=== PATIENT | male | born 1960 | race Caucasian/White ===

== ENCOUNTER → 2016-08-15 | Outpatient (CLI) | payer BC ==
--- NOTE | 2016-08-15 12:01 | XR ---
Left foot HISTORY: Edema, pain 2 views of the left foot Flexion deformity suggested at the second digit with possible associated soft tissue swelling, correl ate. Bone mineralization is maintained, alignment is within normal limits. Degenerative change presen t at the first metatarsophalangeal joint. There is a plantar calcaneal spur. Degenerative change pres ent at the intertarsal joints. IMPRESSION: Osteoarthritic changes. Additional findings above, correlate for flexion deformity second digit.
== END | disposition home or self-care (01) ==
LOC: RADXRMAIN 10:59
PROVIDERS: ATTEND Dermatology
DX: M19.072 Primary osteoarthritis, left ankle and foot (principal); L71.8 Other rosacea

== ENCOUNTER 2018-07-21 05:33 | Inpatient (IN) | payer BC ==
[2018-07-21] MEDS ORDERED: SODIUM CHLORIDE 0.9% 1,000 ML IV STA (05:56)
[2018-07-21] MEDS ORDERED: DILTIAZEM DRIP BOLUS FROM BAG 1 MG SOLN IV ONE (05:58)
--- NOTE | 2018-07-21 06:11 | ED ---
GI Bleed HPI - General Chief complaint: GI Bleed Stated complaint: abd pain Time Seen by Provider: 07/21/18 05:43 Source: patient Mode of arrival: ambulatory Limitations: no limitations - History of Present Illness Initial comments: Stephane is a pleasant 58yo male with PMH of bleeding diverticula who presents to the ER today for evaluation of GI bleeding. She states she had a bowel movement this morning upon wiping he noticed that there was bright red blood this is similar to previous episodes of diverticular bleeding. Patient reports he began to feel very anxious about the bleeding but decided to come to the ER for further evaluation. Upon arrival in the ER patient was found to be in atrial fibrillation with RVR with rates ranging from the 110s to the 170s. Patient states that he has no history of A. fib he's never seen a optomechanical engineer he has no known cardiac history he is not on any anticoagulant antiplatelet medications. - Related Data Home Medications Medication Instructions Recorded Confirmed ALPRAZolam [Xanax] 0.25 mg PO HS PRN 07/21/18 07/21/18 Levothyroxine Sodium [Synthroid] 25 mcg PO DAILY 07/21/18 07/21/18 Allergies Allergy/AdvReac Type Severity Reaction Status Date / Time No Known Allergies Allergy Verified 07/21/18 07:16 Review of Systems ROS Statement: Those systems with pertinent positive or pertinent negative responses have been documented in the HPI. ROS Other: All systems not noted in ROS Statement are negative. Past Medical History Past Medical History: Thyroid Disorder Additional Past Medical History / Comment(s): diverticulosis History of Any Multi-Drug Resistant Organisms: None Reported Past Surgical History: Tonsillectomy Past Psychological History: No Psychological Hx Reported Smoking Status: Former smoker Past Alcohol Use History: Rare Past Drug Use History: None Reported General Exam - General Exam Comments Initial Comments: Physical Exam GENERAL: Patient is well-developed and well-nourished. Patient is nontoxic and well-hydrated and is in no distress. HENT: Normocephalic, Atraumatic. EYES: PERRL, EOMI PULMONARY: Unlabored respirations. No audible rales rhonchi or wheezing was noted. CARDIOVASCULAR: Irregularly irregular Warm and well perfused extremities ABDOMEN: Soft and nontender with normal bowel sounds. SKIN: Skin is clear with no lesions or rashes and otherwise unremarkable. : Normal external genitalia normal rectal tone, no external hemorrhoids noted Bright red blood per rectum NEUROLOGIC: Patient is alert and oriented x3. Moving all extremities spontaneously MUSCULOSKELETAL: Normal extremities with adequate strength and full range of motion. No lower extremity swelling or edema. No calf tenderness. PSYCHIATRIC: Normal psychiatric evaluation. Limitations: no limitations Course Vital Signs 07/21/18 07/21/18 07/21/18 05:38 06:17 07:16 Temperature 97.9 F Pulse Rate 107 H 134 H 125 H Respiratory 20 20 18 Rate Blood Pressure 150/93 113/97 110/93 O2 Sat by Pulse 99 97 95 Oximetry 07/21/18 07:50 Temperature Pulse Rate 106 H Respiratory 16 Rate Blood Pressure O2 Sat by Pulse 97 Oximetry Medical Decision Making - Medical Decision Making The patient was seen and evaluated, history is obtained from the patient Patient is noted to have new onset atrial fibrillation with RVR, patient does admit to feeling anxious but denies any chest pain palpitations or shortness of breath Asians exam also reveals bright red blood per rectum Labs and imaging were ordered Cardizem ordered for her A. fib with RVR however given that the patient has active rectal bleeding I will hold the heparin at this time. Labs unremarkable, hemoglobin is stable, electrolytes are within normal limits TSH is within normal limits, Troponin is not elevated X-ray concerning for coronary vascular congestion this is likely acutely related to the patient's A. fib with RVR. Patient's heart rate improving with Cardizem patient maintained hemodynamically stable. An echo was ordered for further evaluation of cardiac function. Patient care was discussed with Dr. Louis admitting physician who agrees with plan for admission with consults cardiology and surgery Dr. Verdugo the patient is seen in the past for GI bleeding. Patient care was discussed with Dr. Roca who will evaluate the patient as well as Dr. Mcgraw of cardiology group who is aware and will evaluate the patient. - Lab Data Result diagrams: 07/21/18 05:55 07/21/18 05:55 Lab Results 07/21/18 07/21/18 07/21/18 Range/Units 05:55 05:55 05:55 WBC 5.8 (3.8-10.6) k/uL RBC 5.41 (4.30-5.90) m/uL Hgb 15.9 (13.0-17.5) gm/dL Hct 51.7 (39.0-53.0) % MCV 95.7 (80.0-100.0) fL MCH 29.3 (25.0-35.0) pg MCHC 30.7 L (31.0-37.0) g/dL RDW 14.4 (11.5-15.5) % Plt Count 176 (150-450) k/uL Neutrophils % 59 % Lymphocytes % 29 % Monocytes % 7 % Eosinophils % 3 % Basophils % 1 % Neutrophils # 3.4 (1.3-7.7) k/uL Lymphocytes # 1.7 (1.0-4.8) k/uL Monocytes # 0.4 (0-1.0) k/uL Eosinophils # 0.2 (0-0.7) k/uL Basophils # 0.1 (0-0.2) k/uL PT (9.0-12.0) sec INR (<1.2) APTT (22.0-30.0) sec Sodium 142 (137-145) mmol/L Potassium 4.5 (3.5-5.1) mmol/L Chloride 111 H (98-107) mmol/L Carbon Dioxide 19 L (22-30) mmol/L Anion Gap 12 mmol/L BUN 9 (9-20) mg/dL Creatinine 0.67 (0.66-1.25) mg/dL Est GFR (CKD-EPI)AfAm >90 (>60 ml/min/1.73 sqM) Est GFR (CKD-EPI)NonAf >90 (>60 ml/min/1.73 sqM) Glucose 84 (74-99) mg/dL Calcium 9.6 (8.4-10.2) mg/dL Magnesium 1.8 (1.6-2.3) mg/dL Total Bilirubin 0.5 (0.2-1.3) mg/dL AST 37 (17-59) U/L ALT 28 (21-72) U/L Alkaline Phosphatase 48 (38-126) U/L Troponin I (0.000-0.034) ng/mL NT-Pro-B Natriuret Pep 1600 pg/mL Total Protein 7.2 (6.3-8.2) g/dL Albumin 4.3 (3.5-5.0) g/dL Stool Occult Blood (Negative) 07/21/18 07/21/18 07/21/18 Range/Units 05:55 05:55 06:14 WBC (3.8-10.6) k/uL RBC (4.30-5.90) m/uL Hgb (13.0-17.5) gm/dL Hct (39.0-53.0) % MCV (80.0-100.0) fL MCH (25.0-35.0) pg MCHC (31.0-37.0) g/dL RDW (11.5-15.5) % Plt Count (150-450) k/uL Neutrophils % % Lymphocytes % % Monocytes % % Eosinophils % % Basophils % % Neutrophils # (1.3-7.7) k/uL Lymphocytes # (1.0-4.8) k/uL Monocytes # (0-1.0) k/uL Eosinophils # (0-0.7) k/uL Basophils # (0-0.2) k/uL PT 12.7 H (9.0-12.0) sec INR 1.2 H (<1.2) APTT 26.1 (22.0-30.0) sec Sodium (137-145) mmol/L Potassium (3.5-5.1) mmol/L Chloride (98-107) mmol/L Carbon Dioxide (22-30) mmol/L Anion Gap mmol/L BUN (9-20) mg/dL Creatinine (0.66-1.25) mg/dL Est GFR (CKD-EPI)AfAm (>60 ml/min/1.73 sqM) Est GFR (CKD-EPI)NonAf (>60 ml/min/1.73 sqM) Glucose (74-99) mg/dL Calcium (8.4-10.2) mg/dL Magnesium (1.6-2.3) mg/dL Total Bilirubin (0.2-1.3) mg/dL AST (17-59) U/L ALT (21-72) U/L Alkaline Phosphatase (38-126) U/L Troponin I <0.012 (0.000-0.034) ng/mL NT-Pro-B Natriuret Pep pg/mL Total Protein (6.3-8.2) g/dL Albumin (3.5-5.0) g/dL Stool Occult Blood Positive (Negative) - EKG Data -: EKG Interpreted by Me EKG Comments: EKG was ordered for evaluation of tachycardia next line EKG was obtained at 5:55 AM, rate is 147 a narrow complex irregularly irregular tachycardia consistent with atrial fibrillation with rapid ventricular response, QRS 88, QT 314, QTC [address] elevations or depressions no evidence acute ischemia or infarction. Critical Care Time Critical Care Time: Yes Total Critical Care Time: 45 Critical Care Time: Critical Care Time Critical care time was exclusive of separately billable procedures and treating other patients and teaching time. Critical care was necessary to treat or prevent imminent or life-threatening deterioration. Given the critical condition in which the patient arrived, the patient was immediately assessed by myself and the nurse, and cardiac monitoring initiated due to the potential for rapid decompensation of the patient's clinical condition. During the course of the patients stay, I spent a considerable amount of time at the bedside performing serial re-evaluations of the patient's hemodynamic and clinical status because of the recognized potential threat to life or limb in this condition. I then had a chance to review not only all of the available current laboratory and radiographic studies obtained today, but I also reviewed old records available to me at the time. Additionally, any ancillary information available including bulk tank car unloader records were reviewed. Sequential vital signs were obtained. Disposition Clinical Impression: BRBPR (bright red blood per rectum), Atrial fibrillation with RVR, Heart failure Disposition: ADMITTED IP TO THIS HOSP Condition: Serious Is patient prescribed a controlled substance at d/c from ED?: No Referrals: Wang May DO [Primary Care Provider] - 1-2 days
[2018-07-21] MEDS: DILTIAZEM 125 MG in SODIUM CHLORIDE 0.9% 100 ML IV SCH (06:14)
[2018-07-21 06:18] LABS: Basophils # (A) 0.1 k/uL (0-0.2); Basophils % (A) 1 %; Eosinophils # (A) 0.2 k/uL (0-0.7); Eosinophils % (A) 3 %; HCT 51.7 % (39.0-53.0); HGB 15.9 gm/dL (13.0-17.5); Lymphocytes # (A) 1.7 k/uL (1.0-4.8); Lymphocytes % (A) 29 %; MCH 29.3 pg (25.0-35.0); MCHC 30.7 g/dL (31.0-37.0); MCV 95.7 fL (80.0-100.0); Mean Platelet Volume 8.3; Monocytes # (A) 0.4 k/uL (0-1.0); Monocytes % (A) 7 %; Neutrophils # (A) 3.4 k/uL (1.3-7.7); Neutrophils % (A) 59 %; Platelet Count 176 k/uL (150-450); RBC 5.41 m/uL (4.30-5.90); RDW 14.4 % (11.5-15.5); WBC 5.8 k/uL (3.8-10.6)
[2018-07-21 06:27] LABS: ALT 28 U/L (21-72); AST 37 U/L (17-59); Albumin 4.3 g/dL (3.5-5.0); Alkaline Phosphatase 48 U/L (38-126); Anion Gap 12 mmol/L; Blood Urea Nitrogen 9 mg/dL (9-20); Calcium 9.6 mg/dL (8.4-10.2); Carbon Dioxide 19 mmol/L (22-30); Chloride 111 mmol/L (98-107); Glucose 84 mg/dL (74-99); Magnesium 1.8 mg/dL (1.6-2.3); Potassium 4.5 mmol/L (3.5-5.1); Sodium 142 mmol/L (137-145); Total Bilirubin 0.5 mg/dL (0.2-1.3); Total Protein 7.2 g/dL (6.3-8.2)
[2018-07-21 06:38] LABS: INR 1.2 (<1.2); Partial Thromboplastin Time 26.1 sec (22.0-30.0); Prothrombin Time 12.7 sec (9.0-12.0)
--- NOTE | 2018-07-21 06:52 | XR ---
EXAM: XR Chest, 2 Views CLINICAL HISTORY: ITS.REASON XR Reason: Chest Pain TECHNIQUE: Frontal and lateral views of the chest. COMPARISON: 06/14/15 FINDINGS/IMPRESSION: Vascular congestion. Pulmonary hyperexpansion. Suspected bronchial wall thickening. No consolidation. Borderline enlargement of cardiac silhouette suggested more on the frontal than the lateral view. Configuration of cardiac silhouette suggests possibility of pericardial effusion. Alternatively, some of the opacity at the lateral portions of the cardiac silhouette may represent summation with thickened airways. Consider echocardiography or other follow-up, as indicated.
[2018-07-21] MEDS ORDERED: NALOXONE 0.4 MG/ML 1 ML VIAL IV PRN (07:22)
[2018-07-21 10:10] LABS: Glucose,Whole Blood 84 mg/dL (75-99)
[2018-07-21] MEDS ORDERED: METOPROLOL TARTRATE 25 MG TAB PO SCH (12:00)
--- NOTE | 2018-07-21 12:50 | ECHOF ---
Referral Reason:new afib rvr, concern for pericardial efusion MEASUREMENTS -------- HEIGHT: 182.9 cm WEIGHT: 99.8 kg BP: 110/93 RVIDd: 3.1 cm (< 3.3) IVSd: 1.2 cm (0.6 - 1.1) LVIDd: 5.2 cm (3.9 - 5.3) LVPWd: 1.3 cm (0.6 - 1.1) IVSs: 1.5 cm LVIDs: 4.7 cm LVPWs: 1.3 cm LAESV Index (A-L): 41.60 ml/m Ao Diam: 3.8 cm (2.0 - 3.7) AV Cusp: 2.1 cm (1.5 - 2.6) LA Diam: 3.0 cm (2.7 - 3.8) RAP: 20.00 mmHg RVSP: 45.68 mmHg FINDINGS -------- Atrial fibrillation. This was a technically good study. The left ventricular size is normal. There is mild concentric left ventricular hypertrophy. There is severe global hypokinesis of LV . Overall left ventricular systolic function is severely impair ed with, an EF < 20%. The right ventricle is normal in size. LA is severely dilated >40 ml/m2 RA appears enlarged. Interatrial and interventricular septum intact. The aortic valve is trileaflet and appears structurally normal. The mitral valve is normal. Mild mitral regurgitation is present , predominately an anteriorly dire cted jet. [id number] tricuspid regurgitation present. There is mild pulmonary hypertension. The right ventricular systolic pressure, as measured by Doppler, is 45.68mmHg. There is no pulmonic regurgitation present. The aortic root size is normal. The inferior vena cava is dilated with no significant inspiratory collapse which is consistent estima catherine right atrial pressure of >20 mmHg. Echo free space indicative of a pericardial fat pad. CONCLUSIONS -------- 1. Atrial fibrillation. 2. This was a technically good study. 3. The left ventricular size is normal. 4. There is mild concentric left ventricular hypertrophy. 5. There is severe global hypokinesis of LV . 6. Overall left ventricular systolic function is severely impaired with, an EF < 20%. 7. The right ventricle is normal in size. 8. LA is severely dilated >40 ml/m2 9. RA appears enlarged. 10. Interatrial and interventricular septum intact. 11. The aortic valve is trileaflet and appears structurally normal. 12. The mitral valve is normal. 13. Mild mitral regurgitation is present. 14. , predominately an anteriorly directed jet. 15. Zkwm-[id number] tricuspid regurgitation present. 16. There is mild pulmonary hypertension. 17. The right ventricular systolic pressure, as measured by Doppler, is 45.68mmHg. 18. There is no pulmonic regurgitation present. 19. The aortic root size is normal. 20. The inferior vena cava is dilated with no significant inspiratory collapse which is consistent es timated right atrial pressure of >20 mmHg. 21. Echo free space indicative of a pericardial fat pad. MANUFACTURED BUILDINGS REPAIRER: Johana Freire RDCS
--- NOTE | 2018-07-21 13:22 | P.HPIM ---
History of Present Illness H&P Date: 07/21/18 Chief Complaint: A. fib with RVR, acute GI bleed, cardiomyopathy, hypertension, hypothyroidi 58-year-old male one of Dr. May patient with past medical history of hypothyroidism and history of diverticulitis with recurrent bleed had colonoscopy in 2013 and [place] [address] Verdugo patient is known to have recurrent GI bleed back and forth has been treated for it several times. Apparently patient had an acute GI bleed with bloody stool when he wiped himself a significant amount of blood ended up coming to the emergency department at [facility] early this morning at the time was exam found to have very rapid pulse with heart rate running 170 beats per minutes found to be in A. fib with RVR his blood count was not low patient was not in any active bleed he was started on Cardizem drip consult cardiology and admit patient to the hospital. Also consult Dr. boss for possible colonoscopy and prepare for anticoagulation if needed. Echocardiogram at the time was seen was pending came back positive for severe cardiopathy with ejection fraction less than 20% tile would not be clear evidence why Review of Systems CONSTITUTIONAL: Well-developed no acute respiratory distress. EYES: No icterus sclerae, no conjunctivitis. EARS, NOSE, MOUTH, THROAT, and FACE: No sore throat, lymphadenopathy, carotid bruits or deformity. RESPIRATORY: Positive shortness of breath and wheezes. CARDIOVASCULAR: Positive palpitation with PND and orthopnea. GASTROINTESTINAL: No abdominal pain positive bloody bowel movement with no nausea vomiting. GENITOURINARY: Negative for Hematuria or UTI, no kidney stones. INTEGUMENT/BREAST: Negative for any muscular injury with mild osteoarthritis.. HEMATOLOGIC/LYMPHATIC: Negative for bleed or purpura. MUSCULOSKELTAL: Negative for Myalgia or arthralgia. NEURLOGICAL: No LOC, Sz or syncope, blurred vision dizziness or abnormality.. BEHAVIORAL/PSYCH: Negative. ENDOCRINE: Negative. Past Medical History Past Medical History: Skin Disorder, Thyroid Disorder Additional Past Medical History / Comment(s): 2006 Lower GI bleed d/t bleeding diverticuli/profound anemia with transfusions, diverticulosis, hypothyroid, dermatitis face/chest/back. History of Any Multi-Drug Resistant Organisms: None Reported Past Surgical History: Tonsillectomy Additional Past Surgical History / Comment(s): 2007 EGD/colonoscopy Past Anesthesia/Blood Transfusion Reactions: No Reported Reaction, Motion Sickness Smoking Status: Former smoker - Past Family History Father Family Medical History: No Reported History Additional Family Medical History / Comment(s): Father is healthy and is 82 yrs old. Mother Family Medical History: Cancer Additional Family Medical History / Comment(s): Mother of brain cancer. Medications and Allergies Home Medications Medication Instructions Recorded Confirmed Type ALPRAZolam [Xanax] 0.25 mg PO HS PRN 07/21/18 07/21/18 History Levothyroxine Sodium [Synthroid] 25 mcg PO DAILY 07/21/18 07/21/18 History Allergies Allergy/AdvReac Type Severity Reaction Status Date / Time No Known Allergies Allergy Verified 07/21/18 07:16 Physical Exam Vitals: Vital Signs Temp Pulse Resp BP Pulse Ox 07/21/18 10:30 121 H 18 141/112 92 L 07/21/18 10:20 97.7 F 130 H 23 141/112 98 07/21/18 10:10 138 H 30 H 94 L 07/21/18 10:03 137 H 10 L 95 07/21/18 09:50 122/92 07/21/18 09:40 124 H 21 122/92 96 07/21/18 09:30 138 H 22 134/105 94 L 07/21/18 09:00 125 H 18 128/86 94 L 07/21/18 08:50 124 H 19 95 07/21/18 08:40 120 H 20 128/86 96 07/21/18 08:20 122 H 18 128/86 96 07/21/18 07:50 106 H 16 97 07/21/18 07:16 125 H 18 110/93 95 07/21/18 06:17 134 H 20 113/97 97 07/21/18 05:38 97.9 F 107 H 20 150/93 99 Intake and Output 07/20/18 07/21/18 07/21/18 22:59 06:59 14:59 Other: Weight 99.79 kg General Appearance: Alert, cooperative, no distress, appears stated age. Neck HEENT: Supple, no lymphadenopathy, no thyroid enlargement, no carotid bruits. Lungs: Clear to auscultation without crackles or wheezes no rhonchi, no deformity. Chest Wall: Chest wall normal expansion with deep inspiration no tenderness and no deformity was found on exam, no costochondral pain or discomfort. Heart: Irregular rate and rhythm, S1, S2 positive S3 , no murmur, rub or gallop. Back: Symmetric, no curvature, ROM normal, no CVA tenderness. Abdomen: Soft, non-tender, bowel sounds active all four quadrants, no masses, no organomegaly. Extremities: Extremities normal, atraumatic, no cyanosis or edema. Pulses: 2+ and symmetric. Skin: Skin color, texture, tugor normal, no rashes or lesions. Neurologic: Alert oriented x3 cranial nerves II through XII intact, no motor deficit, no abnormal balance or gait. Results CBC & Chem 7: 07/21/18 05:55 07/21/18 05:55 Labs: Abnormal Lab Results - Last 24 Hours (Table) 07/21/18 07/21/18 07/21/18 Range/Units 05:55 05:55 05:55 MCHC 30.7 L (31.0-37.0) g/dL PT 12.7 H (9.0-12.0) sec INR 1.2 H (<1.2) Chloride 111 H (98-107) mmol/L Carbon Dioxide 19 L (22-30) mmol/L TSH (0.465-4.680) mIU/L 07/21/18 Range/Units 05:55 MCHC (31.0-37.0) g/dL PT (9.0-12.0) sec INR (<1.2) Chloride (98-107) mmol/L Carbon Dioxide (22-30) mmol/L TSH 6.860 H (0.465-4.680) mIU/L Thrombosis Risk Factor Assmnt - DVT/VTE Prophylaxis DVT/VTE Prophylaxis: Mechanical Prophylaxis ordered - Choose All That Apply Any of the Below Risk Factors Present?: Yes Each Factor Represents 1 point: Age 41-60 years, Heart failure (<1month), Obesity (BMI >25) Other Risk Factors: No Other congenital or acquired thrombophilia - If yes, enter type in comment: No Thrombosis Risk Factor Assessment Total Risk Factor Score: 3 Thrombosis Risk Factor Assessment Level: Moderate Risk Assessment and Plan Plan: 1 A. fib with RVR: Patient will be admitted to the hospital [facility] continue to monitor patient closely we'll consult cardiology no anticoagulation at this point until his GI bleed is a clear hour after colonoscopy. If no response to Cardizem patient might require amiodarone or even cardioversion. Ex 2 acute GI bleed: Most likely lower in could be diverticulitis versus ischemic colitis Dr. Verdugo was consulted patient be seen and plan for colonoscopy before starting an anticoagulation. 3 cardiopathy: Not a clear etiology no history of ischemia in the past patient be seen cardiology CK with troponin and if can heart catheter would be beneficial. 4 history of diverticulitis with recurrent episode: No need for any antibiotics currently specially with no active or acute abdominal pain. 5 hypothyroidism: Has been on levothyroxine continue medication. 6 mild anxiety and panic attack: Continue patient on alprazolam. 7 GI prophylaxis: Patient will be on pantoprazole. CODE STATUS: Full code. Admit patient to inpatient status for more than 2 nights.
[2018-07-21] MEDS ORDERED: FUROSEMIDE 10 MG/ML 2 ML VIAL IV STA (13:24)
[2018-07-21] MEDS: PANTOPRAZOLE 40 MG/10 ML VIAL IVP SCH (14:03)
[2018-07-21] MEDS: LISINOPRIL 2.5 MG TAB PO SCH (14:03)
[2018-07-21] MEDS: SPIRONOLACTONE 25 MG TAB PO SCH (14:03)
[2018-07-21] MEDS: METOPROLOL TARTRATE 50 MG TAB PO SCH (14:04)
[2018-07-21 14:20] LABS: T4, Free (Free Thyroxine) 1.22 ng/dL (0.78-2.19)
--- NOTE | 2018-07-21 15:41 | P.GSCN ---
History of Present Illness Consult date: 07/21/18 Reason for Consult: Rectal bleeding History of present illness: 58-year-old male comes in the ER with complaints of bright red blood per rectum. The patient has had 2 previous episodes. Once when he was in [place]. He was kept in the hospital that time for about a day or so. The time prior to that was 10-15 years ago and he was kept here at [facility] for approximately 6 days. Colonoscopy revealed diverticulosis per the patient. No history of known neoplasia or polypoid disease. This time the patient had blood primarily with wiping. He had no large bloody stools at this admission. In the ER the patient was found to be significantly tachycardic. Echo shows a very low ejection fraction. Cardiology consult pending. Denies abdominal pain. Hemoglobin stable. Review of Systems The patient denies any acute changes in vision or hearing, no dysphagia or odynophagia, no chest pain or shortness of breath, no dysuria or hematuria, no headache, no runny nose, no melena, no unexplained weight loss Past Medical History Past Medical History: Skin Disorder, Thyroid Disorder Additional Past Medical History / Comment(s): 2006 Lower GI bleed d/t bleeding diverticuli/profound anemia with transfusions, diverticulosis, hypothyroid, dermatitis face/chest/back. History of Any Multi-Drug Resistant Organisms: None Reported Past Surgical History: Tonsillectomy Additional Past Surgical History / Comment(s): 2006 EGD/colonoscopy Past Anesthesia/Blood Transfusion Reactions: No Reported Reaction, Motion Sickness Smoking Status: Former smoker - Past Family History Father Family Medical History: No Reported History Additional Family Medical History / Comment(s): Father is healthy and is 82 yrs old. Mother Family Medical History: Cancer Additional Family Medical History / Comment(s): Mother of brain cancer. Medications and Allergies Home Medications Medication Instructions Recorded Confirmed Type ALPRAZolam [Xanax] 0.25 mg PO HS PRN 07/21/18 07/21/18 History Levothyroxine Sodium [Synthroid] 25 mcg PO DAILY 07/21/18 07/21/18 History Allergies Allergy/AdvReac Type Severity Reaction Status Date / Time No Known Allergies Allergy Verified 07/21/18 07:16 Surgical - Exam Vital Signs Temp Pulse Resp BP Pulse Ox 97.9 F 107 H 20 150/93 99 07/21/18 05:38 07/21/18 05:38 07/21/18 05:38 07/21/18 05:38 07/21/18 05:38 Physical exam: General: Well-developed, well-nourished HEENT: Normocephalic, sclerae nonicteric Abdomen: Nontender, nondistended Extremities: No edema Neuro: Alert and oriented Results - Labs 07/21/18 05:55 07/21/18 05:55 Abnormal Lab Results - Last 24 Hours (Table) 07/21/18 07/21/18 07/21/18 Range/Units 05:55 05:55 05:55 MCHC 30.7 L (31.0-37.0) g/dL PT 12.7 H (9.0-12.0) sec INR 1.2 H (<1.2) Chloride 111 H (98-107) mmol/L Carbon Dioxide 19 L (22-30) mmol/L TSH (0.465-4.680) mIU/L 07/21/18 Range/Units 05:55 MCHC (31.0-37.0) g/dL PT (9.0-12.0) sec INR (<1.2) Chloride (98-107) mmol/L Carbon Dioxide (22-30) mmol/L TSH 6.860 H (0.465-4.680) mIU/L Diabetes panel 07/21/18 Range/Units 05:55 Sodium 142 (137-145) mmol/L Potassium 4.5 (3.5-5.1) mmol/L Chloride 111 H (98-107) mmol/L Carbon Dioxide 19 L (22-30) mmol/L BUN 9 (9-20) mg/dL Creatinine 0.67 (0.66-1.25) mg/dL Glucose 84 (74-99) mg/dL Calcium 9.6 (8.4-10.2) mg/dL AST 37 (17-59) U/L ALT 28 (21-72) U/L Alkaline Phosphatase 48 (38-126) U/L Total Protein 7.2 (6.3-8.2) g/dL Albumin 4.3 (3.5-5.0) g/dL Thyroid panel 07/21/18 Range/Units 05:55 TSH 6.860 H (0.465-4.680) mIU/L Calcium panel 07/21/18 Range/Units 05:55 Calcium 9.6 (8.4-10.2) mg/dL Albumin 4.3 (3.5-5.0) g/dL Pituitary panel 07/21/18 07/21/18 Range/Units 05:55 05:55 Sodium 142 (137-145) mmol/L Potassium 4.5 (3.5-5.1) mmol/L Chloride 111 H (98-107) mmol/L Carbon Dioxide 19 L (22-30) mmol/L BUN 9 (9-20) mg/dL Creatinine 0.67 (0.66-1.25) mg/dL Glucose 84 (74-99) mg/dL Calcium 9.6 (8.4-10.2) mg/dL TSH 6.860 H (0.465-4.680) mIU/L Adrenal panel 07/21/18 Range/Units 05:55 Sodium 142 (137-145) mmol/L Potassium 4.5 (3.5-5.1) mmol/L Chloride 111 H (98-107) mmol/L Carbon Dioxide 19 L (22-30) mmol/L BUN 9 (9-20) mg/dL Creatinine 0.67 (0.66-1.25) mg/dL Glucose 84 (74-99) mg/dL Calcium 9.6 (8.4-10.2) mg/dL Total Bilirubin 0.5 (0.2-1.3) mg/dL AST 37 (17-59) U/L ALT 28 (21-72) U/L Alkaline Phosphatase 48 (38-126) U/L Total Protein 7.2 (6.3-8.2) g/dL Albumin 4.3 (3.5-5.0) g/dL Assessment and Plan (1) BRBPR (bright red blood per rectum) Narrative/Plan: Patient with bright red blood per rectum. Etiology certainly could be related to perianal trauma or hemorrhoids. AVM, diverticulosis, or neoplasia remain within the differential. Patient will likely require anticoagulation. For that reason we will certainly plan colonoscopy this admission. Await clearance from cardiology. Will start clear liquid diet tomorrow morning in anticipation for colonoscopy on afternoon. Current Visit: Yes Status: Acute Code(s): K62.5 - HEMORRHAGE OF ANUS AND RECTUM SNOMED Code(s): 80977662
--- NOTE | 2018-07-21 18:03 | CONS ---
CONSULTATION Mr. Russo is a 58-year-old male with a known history or diverticulosis who presented with some blood on the towel. In the emergency room he was noted to be in atrial fibrillation. Cardiology consultation was requested. The patient is reasonably active physically. He reaches about 8000 steps a day, has no exertional chest pain. He has no dizziness or palpitation or knowledge of the arrhythmia. He has no prior history of documented atrial fibrillation or cardiac workup. He denies any change in his activity or energy. He denies any PND, orthopnea or peripheral edema. He has a Fitbit, and his average heart rate over the last month or so has been in the 50s, although it is unclear how accurate it is. His coronary risk factors are remarkable for prior history of smoking, which he stopped over 5 years ago. He was told he had hypertension in the past but did not require treatment. He is nondiabetic. His lipid profile is not available. REVIEW OF SYSTEMS: RESPIRATORY SYSTEM: He has had no recent wheezing. No cough. No history of obstructive lung disease. GI SYSTEM: He has the diverticulosis, prior episode of GI bleeding. No nausea. No vomiting. SYSTEM: No dysuria or hematuria. NERVOUS SYSTEM: No history of stroke or seizure. SOCIAL HISTORY: He drinks iced coffee and drinks beer on a daily basis. PHYSICAL EXAMINATION: This is a 58-year-old male, alert, oriented, in no apparent distress. Anxious. Blood pressure running in the 140s over 110s with a heart rate in the 120s to 130s. HEAD: Normocephalic. Eyes: Sclerae anicteric. NECK: No bruit. LUNGS: Clear to auscultation. HEART: Irregularly irregular. S1, S2. No S3, with no rub or gallop. ABDOMEN: Soft, nontender. Positive bowel sounds. No organomegaly. EXTREMITIES: No edema. Intact distal pulses. LAB DATA: Lab data revealed a troponin less than 0.012, NT-proBNP of 1600, TSH of 6.8. BUN and creatinine of 9 and 0.67, potassium 4.5, hemoglobin of 15.9, white blood cells of 5.8. EKG revealed atrial fibrillation with a rapid ventricular response and nonspecific ST-T wave changes. Echocardiogram showed a severely impaired left ventricular systolic function with no mention of segmental wall motion abnormality. The left ventricular size was normal. There was evidence of mild mitral and mild to moderate tricuspid regurgitation with mild pulmonary hypertension. IMPRESSION: 1. Atrial fibrillation of unclear duration, probably recent. 2. Cardiomyopathy of unclear etiology. It could be tachycardia-induced cardiomyopathy. On the other hand, it could be primary cardiomyopathy or alcoholic cardiomyopathy causing the atrial fibrillation. 3. Episode of gastrointestinal bleeding, with no active bleeding at this time. 4. Daily alcohol intake. RECOMMENDATIONS: I will add to his regimen Aldactone and lisinopril, increase the dose of his beta chauncey. At this time, he is not a candidate for anticoagulation because of the recent bleeding. I will give him one dose of diuretics. Will await the followup of his blood count and evaluation by Dr. Verdugo. I discussed with the patient the findings. Further workup will be needed for the etiology of cardiomyopathy once the GI bleeding has been controlled. I have discussed with him the importance of total alcohol abstinence. Thank you for this consult. We will follow with you. INEZ / JUSTINEN: [id number] /
[2018-07-22] MEDS: ALPRAZolam 0.25 MG TAB PO PRN ×2 (01:00→23:18)
[2018-07-22 05:58] LABS: Basophils # (A) 0.1 k/uL (0-0.2); Basophils % (A) 1 %; Eosinophils # (A) 0.1 k/uL (0-0.7); Eosinophils % (A) 2 %; HCT 48.1 % (39.0-53.0); HGB 14.8 gm/dL (13.0-17.5); Lymphocytes # (A) 1.7 k/uL (1.0-4.8); Lymphocytes % (A) 21 %; MCH 29.7 pg (25.0-35.0); MCHC 30.8 g/dL (31.0-37.0); MCV 96.5 fL (80.0-100.0); Mean Platelet Volume 7.9; Monocytes # (A) 0.5 k/uL (0-1.0); Monocytes % (A) 6 %; Neutrophils # (A) 5.3 k/uL (1.3-7.7); Neutrophils % (A) 68 %; Platelet Count 173 k/uL (150-450); RBC 4.98 m/uL (4.30-5.90); RDW 14.3 % (11.5-15.5); WBC 7.9 k/uL (3.8-10.6)
[2018-07-22 06:17] LABS: ALT 31 U/L (21-72); AST 23 U/L (17-59); Albumin 3.5 g/dL (3.5-5.0); Alkaline Phosphatase 42 U/L (38-126); Anion Gap 7 mmol/L; Blood Urea Nitrogen 8 mg/dL (9-20); Calcium 8.9 mg/dL (8.4-10.2); Carbon Dioxide 27 mmol/L (22-30); Chloride 107 mmol/L (98-107); Glucose 91 mg/dL (74-99); Potassium 4.1 mmol/L (3.5-5.1); Sodium 141 mmol/L (137-145); Total Bilirubin 1.1 mg/dL (0.2-1.3); Total Protein 6.2 g/dL (6.3-8.2)
[2018-07-22] MEDS: LEVOTHYROXINE 25 MCG TAB PO SCH (06:51)
[2018-07-22] MEDS: DILTIAZEM 125 MG in SODIUM CHLORIDE 0.9% 100 ML IV SCH (09:41)
[2018-07-22] MEDS: PANTOPRAZOLE 40 MG/10 ML VIAL IVP SCH (09:43)
[2018-07-22] MEDS: SPIRONOLACTONE 25 MG TAB PO SCH (09:43)
[2018-07-22] MEDS: METOPROLOL TARTRATE 50 MG TAB PO SCH ×2 (09:43→20:49)
--- NOTE | 2018-07-22 11:07 | P.PN ---
<Rosario Villasenor - Last Filed: 07/22/18 11:03> Subjective Progress Note Date: 07/22/18 CHIEF COMPLAINT: Bright red blood per rectum HISTORY OF PRESENT ILLNESS: Patient examined at the bedside this morning. He reports bowel movement this morning with a small amount of bright red blood. Denies abdominal pain. Denies nausea or vomiting. Hemoglobin remains stable at 14.8. PHYSICAL EXAM: VITAL SIGNS: Reviewed. GENERAL: Well-developed in no acute distress. HEENT: No sclera icterus. Extraocular movements grossly intact. Moist buccal mucosa. Head is atraumatic, normocephalic. ABDOMEN: Soft. Nondistended. Nontender. NEUROLOGIC: Alert and oriented. Cranial nerves II through XII grossly intact. ASSESSMENT: 1. Bright red blood per rectum 2. History of GI bleed PLAN: Continue clear liquid diet. NPO after midnight. Bowel prep this afternoon Tentatively scheduled for colonoscopy tomorrow pending cardiology clearance Nurse practitioner note has been reviewed by physician. Signing provider agrees with the documented findings, assessment, and plan of care. Objective - Vital Signs Vital signs: Vital Signs Temp 97.5 F L 07/22/18 07:54 Pulse 98 07/22/18 07:54 Resp 20 07/22/18 08:00 BP 128/86 07/22/18 07:54 Pulse Ox 94 L 07/22/18 07:54 Intake & Output 07/21/18 07/22/18 07/22/18 18:59 06:59 18:59 Intake Total 2135.5 540 397.167 Output Total 800 300 Balance 2135.5 -260 97.167 Weight 100.5 kg Intake: Intake, IV Titration 655.5 0 37.167 Amount Diltiazem 125 mg In 55.5 0 37.167 Sodium Chloride 0.9% 100 ml @ Per Protocol IV .Q0M FINA Rx#:[id number] Sodium Chloride 0.9% 1, 600 000 ml @ 100 mls/hr IV . Q10H STA Rx#:[id number] Oral 1480 540 360 Output: Urine 800 300 Other: Voiding Method Toilet Toilet Urinal Urinal # Voids 1 2 - Labs CBC & Chem 7: 07/22/18 05:24 07/22/18 05:24 Labs: Abnormal Lab Results - Last 24 Hours (Table) 07/21/18 07/22/18 07/22/18 Range/Units 05:55 05:24 05:24 MCHC 30.8 L (31.0-37.0) g/dL BUN 8 L (9-20) mg/dL Total Protein 6.2 L (6.3-8.2) g/dL TSH 6.860 H (0.465-4.680) mIU/L <Raymond Verdugo - Last Filed: 07/22/18 12:31> Subjective As above. No further bleeding of significance. Plan colonoscopy tomorrow if cleared by cardiology. Objective - Vital Signs Vital signs: Vital Signs Temp 97.4 F L 07/22/18 11:24 Pulse 90 07/22/18 12:19 Resp 20 07/22/18 11:24 BP 114/79 07/22/18 12:19 Pulse Ox 96 07/22/18 11:24 Intake & Output 07/21/18 07/22/18 07/22/18 18:59 06:59 18:59 Intake Total 2135.5 540 406.084 Output Total 800 700 Balance 2135.5 -260 -293.916 Weight 100.5 kg Intake: Intake, IV Titration 655.5 0 46.084 Amount Diltiazem 125 mg In 55.5 0 46.084 Sodium Chloride 0.9% 100 ml @ Per Protocol IV .Q0M FINA Rx#:[id number] Sodium Chloride 0.9% 1, 600 000 ml @ 100 mls/hr IV . Q10H STA Rx#:[id number] Oral 1480 540 360 Output: Urine 800 700 Other: Voiding Method Toilet Toilet Urinal Urinal # Voids 1 2 # Bowel Movements 1 - Labs CBC & Chem 7: 07/22/18 05:24 07/22/18 05:24 Labs: Abnormal Lab Results - Last 24 Hours (Table) 07/21/18 07/22/18 07/22/18 Range/Units 05:55 05:24 05:24 MCHC 30.8 L (31.0-37.0) g/dL BUN 8 L (9-20) mg/dL Total Protein 6.2 L (6.3-8.2) g/dL TSH 6.860 H (0.465-4.680) mIU/L Assessment and Plan (1) BRBPR (bright red blood per rectum) Current Visit: Yes Status: Acute Code(s): K62.5 - HEMORRHAGE OF ANUS AND RE CTUM SNOMED Code(s): 20927269
[2018-07-22] MEDS: LISINOPRIL 2.5 MG TAB PO SCH ×2 (12:21→20:50)
--- NOTE | 2018-07-22 14:23 | P.PN ---
Subjective Progress Note Date: 07/22/18 58-year-old male one of Dr. May patient with past medical history of hypothyroidism and history of diverticulitis with recurrent bleed had colonoscopy in 2013 and in [address] Verdugo patient is known to have recurrent GI bleed back and forth has been treated for it several times. Apparently patient had an acute GI bleed with bloody stool when he wiped himself a significant amount of blood ended up coming to the emergency department at [facility] early this morning at the time was exam found to have very rapid pulse with heart rate running 170 beats per minutes found to be in A. fib with RVR his blood count was not low patient was not in any active bleed he was started on Cardizem drip consult cardiology and admit patient to the hospital. Also consult Dr. boss for possible colonoscopy and prepare for anticoagulation if needed. Echocardiogram at the time was seen was pending came back positive for severe cardiopathy with ejection fraction less than 20% tile would not be clear evidence why 07/22: Patient is currently on Cardizem drip and heart rate remains slightly elevated. Echocardiogram reveals EF of less than 20% and cardiology has added Aldactone and lisinopril to beta chauncey. Plan for further evaluation to determine etiology of cardiomyopathy once GI bleeding is controlled. Dr. Verdugo is planning for colonoscopy tomorrow. Patient states that he did have a bowel movement this morning and there was a little bit of blood that appeared to be from hemorrhoids. Hemoglobin is stable at 14.8. He has been afebrile, heart rate 110, blood pressure 114/69, pulse ox 96% on room air. Objective - Vital Signs Vital signs: Vital Signs Temp 97.4 F L 07/22/18 11:24 Pulse 90 07/22/18 12:19 Resp 20 07/22/18 11:24 BP 114/79 07/22/18 12:19 Pulse Ox 96 07/22/18 11:24 Intake & Output 07/21/18 07/22/18 07/22/18 18:59 06:59 18:59 Intake Total 2135.5 540 406.084 Output Total 800 700 Balance 2135.5 -260 -293.916 Weight 100.5 kg Intake: Intake, IV Titration 655.5 0 46.084 Amount Diltiazem 125 mg In 55.5 0 46.084 Sodium Chloride 0.9% 100 ml @ Per Protocol IV .Q0M FINA Rx#:[id number] Sodium Chloride 0.9% 1, 600 000 ml @ 100 mls/hr IV . Q10H STA Rx#:[id number] Oral 1480 540 360 Output: Urine 800 700 Other: Voiding Method Toilet Toilet Urinal Urinal # Voids 1 2 # Bowel Movements 1 - Exam Review of Systems CONSTITUTIONAL: Well-developed no acute respiratory distress. EYES: No icterus sclerae, no conjunctivitis. EARS, NOSE, MOUTH, THROAT, and FACE: No sore throat, lymphadenopathy, carotid bruits or deformity. RESPIRATORY: Positive shortness of breath and wheezes. CARDIOVASCULAR: Positive palpitation with PND and orthopnea. GASTROINTESTINAL: No abdominal pain positive bloody bowel movement with no nausea vomiting. Denies diarrhea. GENITOURINARY: Negative for Hematuria or UTI, no kidney stones. INTEGUMENT/BREAST: Negative for any muscular injury with mild osteoarthritis.. HEMATOLOGIC/LYMPHATIC: Negative for bleed or purpura. MUSCULOSKELTAL: Negative for Myalgia or arthralgia. NEURLOGICAL: No LOC, Sz or syncope, blurred vision dizziness or abnormality.. BEHAVIORAL/PSYCH: Negative. ENDOCRINE: Negative. General Appearance: Alert, cooperative, no distress, appears stated age. Neck HEENT: Supple, no lymphadenopathy, no thyroid enlargement, no carotid brui ts. Lungs: Clear to auscultation without crackles or wheezes no rhonchi, no deformity. Chest Wall: Chest wall normal expansion with deep inspiration no tenderness and no deformity was found on exam, no costochondral pain or discomfort. Heart: Irregular rate and rhythm, S1, S2 positive S3 , no murmur, rub or gallop. Tachycardic. Back: Symmetric, no curvature, ROM normal, no CVA tenderness. Abdomen: Soft, non-tender, bowel sounds active all four quadrants, no masses, no organomegaly. Extremities: Extremities normal, atraumatic, no cyanosis or edema. Pulses: 2+ and symmetric. Skin: Skin color, texture, tugor normal, no rashes or lesions. Neurologic: Alert oriented x3 cranial nerves II through XII intact, no motor deficit, no abnormal balance or gait. - Labs CBC & Chem 7: 07/22/18 05:24 07/22/18 05:24 Labs: Abnormal Lab Results - Last 24 Hours (Table) 07/21/18 07/22/18 07/22/18 Range/Units 05:55 05:24 05:24 MCHC 30.8 L (31.0-37.0) g/dL BUN 8 L (9-20) mg/dL Total Protein 6.2 L (6.3-8.2) g/dL TSH 6.860 H (0.465-4.680) mIU/L Assessment and Plan Plan: 1 A. fib with RVR, new onset. Cardiology consult appreciated. A shunt in Cardizem drip. Continue Lopressor 50 mg twice daily. Spironolactone 25 mg daily added and lisinopril 2.5 mg twice daily. 2 acute GI bleed: Most likely lower in could be diverticulitis versus ischemic colitis Dr. Verdugo was consulted patient be seen and plan for colonoscopy before starting an anticoagulation. 3 cardiomyopathy of unclear etiology. Cardiology is following. 4 history of diverticulitis with recurrent episode: No need for any antibiotics currently specially with no active or acute abdominal pain. 5 hypothyroidism: Has been on levothyroxine continue medication. 6 mild generalized anxiety disorder and panic attack: Continue patient on alprazolam. 7 GI prophylaxis: Patient will be on pantoprazole. 8 daily alcohol intake. Monitor for DTs. CODE STATUS: Full code. Discharge plan: Return home Impression and plan of care have been directed as dictated by the signing physi cian. Mai Clemens nurse practitioner acting as scribe for signing physician.
[2018-07-22] MEDS ORDERED: PEG 3350-NA SULF,BICARB,CL/KCL 4,000 ML BOTTLE PO ONE (15:00)
--- NOTE | 2018-07-22 16:34 | P.PN ---
Subjective Progress Note Date: 07/22/18 Is a 58-year-old gentleman with history of diverticulosis who presented to the hospital with some blood noted in his stool, and the emergency room he was found to be in atrial fibrillation and for this reason a cardiology consultation was requested. He was seen in consultation by Dr. Handley, it appears that that the patient continues to be in atrial fibrillation although his rate is under adequate control. His coronary risk factors are remarkable for nicotine dependence for which he quit smoking 5 years ago, hypertension, nondiabetic. The patient has been seen by Dr. boss and is scheduled tomorrow to undergo a colonoscopy. Echocardiogram with Doppler study was performed which revealed an ejection fraction of less than 20% with mild to moderate tricuspid regurgitation. Blood pressure 114/70 with a heart rate of 90, 93% on room air. Globin today is 14.8, sodium 141, potassium 4.1, BUN 8 and creatinine 0.7. Objective - Vital Signs Vital signs: Vital Signs Temp 98.1 F 07/22/18 15:29 Pulse 85 07/22/18 15:29 Resp 16 07/22/18 15:29 BP 102/51 07/22/18 15:29 Pulse Ox 93 L 07/22/18 15:29 Intake & Output 07/21/18 07/22/18 07/22/18 18:59 06:59 18:59 Intake Total 2135.5 540 922.084 Output Total 800 1400 Balance 2135.5 -260 -477.916 Weight 100.5 kg Intake: IV 160 Sodium Chloride 0.9% 1, 160 000 ml @ 100 mls/hr IV . Q10H STA Rx#:[id number] Intake, IV Titration 655.5 0 46.084 Amount Diltiazem 125 mg In 55.5 0 46.084 Sodium Chloride 0.9% 100 ml @ Per Protocol IV .Q0M FINA Rx#:[id number] Sodium Chloride 0.9% 1, 600 000 ml @ 100 mls/hr IV . Q10H STA Rx#:[id number] Oral 1480 540 660 Lipid 56 Sodium Chloride 0.9% 1, 56 000 ml @ 100 mls/hr IV . Q10H STA Rx#:[id number] Output: Urine 800 1400 Other: Voiding Method Toilet Toilet Urinal Urinal # Voids 1 2 # Bowel Movements 1 - Exam Neck HEENT: Supple, no lymphadenopathy, no thyroid enlargement, no carotid bruits. Lungs: Clear to auscultation without crackles or wheezes no rhonchi, no deformity. Chest Wall: Chest wall normal expansion with deep inspiration no tenderness and no deformity was found on exam, no costochondral pain or discomfort. Heart: Irregular rate and rhythm, S1, S2 positive S3 , no murmur, rub or gallop. Back: Symmetric, no curvature, ROM normal, no CVA tenderness. Abdomen: Soft, non-tender, bowel sounds active all four quadrants, no masses, no organomegaly. Extremities: Extremities normal, atraumatic, no cyanosis or edema. Pulses: 2+ and symmetric. Skin: Skin color, texture, tugor normal, no rashes or lesions. Neurologic: Alert oriented x3 cranial nerves II through XII intact, no motor de ficit, no abnormal balance or gait. - Labs CBC & Chem 7: 07/22/18 05:24 07/22/18 05:24 Labs: Abnormal Lab Results - Last 24 Hours (Table) 07/22/18 07/22/18 Range/Units 05:24 05:24 MCHC 30.8 L (31.0-37.0) g/dL BUN 8 L (9-20) mg/dL Total Protein 6.2 L (6.3-8.2) g/dL Assessment and Plan Plan: Assessment and plan #1 chronic persistent atrial fibrillation, likely of recent duration #2 cardiac myopathy of unclear etiology, it could be tachycardia induced cardiomyopathy, however it could be a primary cardiac myopathy or alcoholic artery myopathy causing the A. fib as well as. #3 episode of gastrointestinal bleeding scheduled for colonoscopy tomorrow #4 daily EtOH use Plan Patient is scheduled tomorrow to undergo colonoscopy, he is not a candidate at this present time because of recent bleeding, if the patient is cleared by GI service he will need to be started on anticoagulation at some point in time. Further recommendations to follow. DNP note has been reviewed, I agree with a documented findings and plan of care. Patient was seen and examined.
[2018-07-23] MEDS: LEVOTHYROXINE 25 MCG TAB PO SCH (06:41)
[2018-07-23 07:09] LABS: HGB 14.2 gm/dL (13.0-17.5); MCH 29.5 pg (25.0-35.0); MCHC 30.8 g/dL (31.0-37.0); MCV 95.8 fL (80.0-100.0); Mean Platelet Volume 8.7; Platelet Count 158 k/uL (150-450)
[2018-07-23] MEDS: DILTIAZEM 125 MG in SODIUM CHLORIDE 0.9% 100 ML IV SCH (08:20)
[2018-07-23] MEDS: PANTOPRAZOLE 40 MG/10 ML VIAL IVP SCH (08:21)
[2018-07-23] MEDS: SPIRONOLACTONE 25 MG TAB PO SCH (08:21)
[2018-07-23] MEDS: METOPROLOL TARTRATE 50 MG TAB PO SCH ×2 (08:21→20:19)
[2018-07-23] MEDS: LISINOPRIL 2.5 MG TAB PO SCH ×2 (08:21→20:19)
[2018-07-23] MEDS ORDERED: DILTIAZEM ORAL 60 MG TAB PO SCH ×2 (09:00→16:00)
--- NOTE | 2018-07-23 11:47 | P.PN ---
Subjective Progress Note Date: 07/23/18 CHIEF COMPLAINT: Bright red blood per rectum HISTORY OF PRESENT ILLNESS: Patient examined at the bedside this morning. Patient completed bowel prep overnight. Patient denies any further episodes of bright red blood per rectum. Denies abdominal pain. Denies nausea vomiting. WBC 7.0. Hemoglobin 14.2. Patient requesting to be discharged this evening after colonoscopy. PHYSICAL EXAM: VITAL SIGNS: Reviewed. GENERAL: Well-developed in no acute distress. HEENT: No sclera icterus. Extraocular movements grossly intact. Moist buccal mucosa. Head is atraumatic, normocephalic. ABDOMEN: Soft. Nondistended. Nontender. NEUROLOGIC: Alert and oriented. Cranial nerves II through XII grossly intact. ASSESSMENT: 1. Bright red blood per rectum 2. History of GI bleed PLAN: NPO. Patient scheduled for colonoscopy this afternoon with Dr. Verdugo Nurse practitioner note has been reviewed by physician. Signing provider agrees with the documented findings, assessment, and plan of care. Objective - Vital Signs Vital signs: Vital Signs Temp 97.9 F 07/23/18 08:00 Pulse 91 07/23/18 08:00 Resp 16 07/23/18 08:00 BP 107/78 07/23/18 08:00 Pulse Ox 94 L 07/23/18 05:15 Intake & Output 07/22/18 07/23/18 07/23/18 18:59 06:59 18:59 Intake Total 1402.084 116.083 Output Total 1400 Balance 2.084 116.083 Weight 100.5 kg 100.2 kg Intake: IV 160 Sodium Chloride 0.9% 1, 160 000 ml @ 100 mls/hr IV . Q10H STA Rx#:[id number] Intake, IV Titration 46.084 116.083 Amount Diltiazem 125 mg In 46.084 116.083 Sodium Chloride 0.9% 100 ml @ Per Protocol IV .Q0M FINA Rx#:[id number] Oral 1140 Lipid 56 Sodium Chloride 0.9% 1, 56 000 ml @ 100 mls/hr IV . Q10H STA Rx#:[id number] Output: Urine 1400 Other: Voiding Method Urinal # Voids 2 2 # Bowel Movements 1 1 - Labs CBC & Chem 7: 07/23/18 06:32 07/22/18 05:24 Labs: Abnormal Lab Results - Last 24 Hours (Table) 07/23/18 Range/Units 06:32 MCHC 30.8 L (31.0-37.0) g/dL
[2018-07-23] MEDS ORDERED: IV FLUID CONTINUATION 100 ML IV ONE (12:52)
[2018-07-23] MEDS ORDERED: PROPOFOL 10 MG/ML 20 ML VIAL IV ONE (12:57)
[2018-07-23] MEDS ORDERED: LACTATED RINGERS 500 ML IV ONE (13:25)
--- NOTE | 2018-07-23 13:35 | P.PCN ---
Date of Procedure: 07/23/18 Procedure(s) Performed: PREOPERATIVE DIAGNOSIS: Rectal bleeding POSTOPERATIVE DIAGNOSIS: Mild right-sided colitis, internal hemorrhoids PROCEDURE: Colonoscopy with biopsy ANESTHESIA: MAC SURGEON: Raymond Verdugo M.D. SPECIMENS: Cecum ENDOSCOPIC PROCEDURE: The patient was placed on the endoscopy table in the left decubitus position. The Olympus colonoscope was inserted into the anus and passed under direct visualization to the base of the cecum. The appendiceal orifice was visualized. From that point the scope was slowly withdrawn inspecting all surfaces carefully. At the base of the cecum there was mild granularity and subtle inflammation of the mucosa. 2 biopsies were taken. The ascending, transverse, descending, sigmoid and rectum appeared normal. At the anus retroflexion was performed. The patient had prominent hemorrhoidal veins coalescing into prominent internal hemorrhoids. There was no evidence of recent or active bleeding. There was no palpable fissure seen. There was no blood within the lumen of the bowel throughout. The patient had extensive diverticulosis seen throughout the entire colon. Digital rectal examination was normal. The patient was taken to the recovery room in stable condition per anesthesia guidelines. RECOMMENDATIONS: Cautiously begin anticoagulation for A. fib. Await biopsy results. Will follow.
--- NOTE | 2018-07-23 15:33 | P.PN ---
Subjective Progress Note Date: 07/23/18 Is a 58-year-old gentleman with history of diverticulosis who presented to the hospital with some blood noted in his stool, and the emergency room he was found to be in atrial fibrillation and for this reason a cardiology consultation was requested. He was seen in consultation by Dr. Handley, it appears that that the patient continues to be in atrial fibrillation although his rate is under adequate control. His coronary risk factors are remarkable for nicotine dependence for which he quit smoking 5 years ago, hypertension, nondiabetic. The patient has been seen by Dr. boss and is scheduled tomorrow to undergo a colonoscopy. Echocardiogram with Doppler study was performed which revealed an ejection fraction of less than 20% with mild to moderate tricuspid regurgitation. Blood pressure 114/70 with a heart rate of 90, 93% on room air. Globin today is 14.8, sodium 141, potassium 4.1, BUN 8 and creatinine 0.7. 07/23/2018 Patient was seen and examined today, underwent a colonoscopy. Continues to be in atrial fibrillation, rate under adequate control. We will recommend the patient not be on Cardizem because of his cardiomyopathy. We will continue with beta chauncey and start the patient on Eliquis today. Objective - Vital Signs Vital signs: Vital Signs Temp 98.1 F 07/23/18 14:02 Pulse 90 07/23/18 14:02 Resp 16 07/23/18 14:02 BP 108/76 07/23/18 14:02 Pulse Ox 94 L 07/23/18 14:02 Intake & Output 07/22/18 07/23/18 07/23/18 18:59 06:59 18:59 Intake Total 1402.084 116.083 400 Output Total 1400 Balance 2.084 116.083 400 Weight 100.5 kg 100.2 kg Intake: IV 160 400 Sodium Chloride 0.9% 1, 160 000 ml @ 100 mls/hr IV . Q10H STA Rx#:[id number] Intake, IV Titration 46.084 116.083 Amount Diltiazem 125 mg In 46.084 116.083 Sodium Chloride 0.9% 100 ml @ Per Protocol IV .Q0M FINA Rx#:[id number] Oral 1140 Lipid 56 Sodium Chloride 0.9% 1, 56 000 ml @ 100 mls/hr IV . Q10H STA Rx#:[id number] Output: Urine 1400 Other: Voiding Method Urinal # Voids 2 2 # Bowel Movements 1 1 - Exam Neck HEENT: Supple, no lymphadenopathy, no thyroid enlargement, no carotid bruits. Lungs: Clear to auscultation without crackles or wheezes no rhonchi, no deformity. Chest Wall: Chest wall normal expansion with deep inspiration no tenderness and no deformity was found on exam, no costochondral pain or discomfort. Heart: Irregular rate and rhythm, S1, S2 positive S3 , no murmur, rub or gallop. Back: Symmetric, no curvature, ROM normal, no CVA tenderness. Abdomen: Soft, non-tender, bowel sounds active all four quadrants, no masses, no organomegaly. Extremities: Extremities normal, atraumatic, no cyanosis or edema. Pulses: 2+ and symmetric. Skin: Skin color, texture, tugor normal, no rashes or lesions. Neurologic: Alert oriented x3 cranial nerves II through XII intact, no motor deficit, no abnormal balance or gait. - Labs CBC & Chem 7: 07/23/18 06:32 07/22/18 05:24 Labs: Abnormal Lab Results - Last 24 Hours (Table) 07/23/18 Range/Units 06:32 MCHC 30.8 L (31.0-37.0) g/dL Assessment and Plan Plan: Assessment and plan #1 chronic persistent atrial fibrillation, likely of recent duration #2 cardiac myopathy of unclear etiology, it could be tachycardia induced cardiomyopathy, however it could be a primary cardiac myopathy or alcoholic artery myopathy causing the A. fib as well as. #3 episode of gastrointestinal bleeding scheduled for colonoscopy tomorrow #4 daily EtOH use Plan Patient did undergo colonoscopy today, we will start him on Eliquis today. We will recommend the patient not be on Cardizem because of his cardiomyopathy. Continue current dose of beta chauncey. DNP note has been reviewed, I agree with a documented findings and plan of care. Patient was seen and examined.
[2018-07-23 15:55] VITALS: RESP 18
--- NOTE | 2018-07-23 16:27 | P.PN ---
Subjective Progress Note Date: 07/23/18 58-year-old male one of Dr. May patient with past medical history of hypothyroidism and history of diverticulitis with recurrent bleed had colonoscopy in 2013 and [place] [address] Verdugo patient is known to have recurrent GI bleed back and forth has been treated for it several times. Apparently patient had an acute GI bleed with bloody stool when he wiped himself a significant amount of blood ended up coming to the emergency department at [facility] early this morning at the time was exam found to have very rapid pulse with heart rate running 170 beats per minutes found to be in A. fib with RVR his blood count was not low patient was not in any active bleed he was started on Cardizem drip consult cardiology and admit patient to the hospital. Also consult Dr. boss for possible colonoscopy and prepare for anticoagulation if needed. Echocardiogram at the time was seen was pending came back positive for severe cardiopathy with ejection fraction less than 20% tile would not be clear evidence why 07/22: Patient is currently on Cardizem drip and heart rate remains slightly elevated. Echocardiogram reveals EF of less than 20% and cardiology has added Aldactone and lisinopril to beta chauncey. Plan for further evaluation to determine etiology of cardiomyopathy once GI bleeding is controlled. Dr. Verdugo is planning for colonoscopy tomorrow. Patient states that he did have a bowel movement this morning and there was a little bit of blood that appeared to be from hemorrhoids. Hemoglobin is stable at 14.8. He has been afebrile, heart rate 110, blood pressure 114/69, pulse ox 96% on room air. 07/23: Patient is scheduled for colonoscopy today. His heart rate remains around 100 and he is on Cardizem drip. Cardiology to address the transition to oral medications and plan to start eliquis after colonoscopy if cleared by Dr. Verdugo. Anticipate he will be ready for discharge tomorrow.. Objective - Vital Signs Vital signs: Vital Signs Temp 98.0 F 07/23/18 05:15 Pulse 60 07/23/18 05:15 Resp 16 07/23/18 05:15 BP 110/70 07/23/18 05:15 Pulse Ox 94 L 07/23/18 05:15 Intake & Output 07/22/18 07/23/18 07/23/18 18:59 06:59 18:59 Intake Total 1402.084 Output Total 1400 Balance 2.084 Weight 100.5 kg 100.2 kg Intake: IV 160 Sodium Chloride 0.9% 1, 160 000 ml @ 100 mls/hr IV . Q10H STA Rx#:[id number] Intake, IV Titration 46.084 Amount Diltiazem 125 mg In 46.084 Sodium Chloride 0.9% 100 ml @ Per Protocol IV .Q0M FINA Rx#:[id number] Oral 1140 Lipid 56 Sodium Chloride 0.9% 1, 56 000 ml @ 100 mls/hr IV . Q10H STA Rx#:[id number] Output: Urine 1400 Other: Voiding Method Urinal # Voids 2 # Bowel Movements 1 - Exam Review of Systems CONSTITUTIONAL: Well-developed no acute distress. EYES: No icterus sclerae, no conjunctivitis. EARS, NOSE, MOUTH, THROAT, and FACE: No sore throat, lymphadenopathy, carotid bruits or deformity. RESPIRATORY: Positive shortness of breath and wheezes. CARDIOVASCULAR: Positive palpitation with PND and orthopnea. GASTROINTESTINAL: No abdominal pain positive bloody bowel movement with no nausea vomiting. Denies diarrhea. GENITOURINARY: Negative for Hematuria or UTI, no kidney stones. INTEGUMENT/BREAST: Negative for any muscular injury with mild osteoarthritis.. HEMATOLOGIC/LYMPHATIC: Negative for bleed or purpura. MUSCULOSKELTAL: Negative for Myalgia or arthralgia. NEURLOGICAL: No LOC, Sz or syncope, blurred vision dizziness or abnormality.. BEHAVIORAL/PSYCH: Negative. ENDOCRINE: Negative. General Appearance: Alert, cooperative, no distress, appears stated age. Neck HEENT: Supple, no lymphadenopathy, no thyroid enlargement, no carotid bruits. Lungs: Clear to auscultation without crackles or wheezes no rhonchi, no deformity. Chest Wall: Chest wall normal expansion with deep inspiration no tenderness and no deformity was found on exam, no costochondral pain or discomfort. Heart: Irregular rate and rhythm, S1, S2 positive S3 , no murmur, rub or gallop. Tachycardic. Back: Symmetric, no curvature, ROM normal, no CVA tenderness. Abdomen: Soft, non-tender, bowel sounds active all four quadrants, no masses, no organomegaly. Extremities: Extremities normal, atraumatic, no cyanosis or edema. Pulses: 2+ and symmetric. Skin: Skin color, texture, tugor normal, no rashes or lesions. Neurologic: Alert oriented x3 cranial nerves II through XII intact, no motor deficit, no abnormal balance or gait. - Labs CBC & Chem 7: 07/23/18 06:32 07/22/18 05:24 Labs: Abnormal Lab Results - Last 24 Hours (Table) 07/23/18 Range/Units 06:32 MCHC 30.8 L (31.0-37.0) g/dL Assessment and Plan Plan: 1 A. fib with RVR, new onset. Cardiology consult appreciated. Currently on Cardizem drip. Continue Lopressor 50 mg twice daily. Spironolactone 25 mg daily added and lisinopril 2.5 mg twice daily. 2 acute GI bleed: Most likely lower in could be diverticulitis versus ischemic colitis Dr. Verdugo was consulted patient be seen and plan for colonoscopy today before starting an anticoagulation. 3 cardiomyopathy of unclear etiology. Cardiology is following. 4 history of diverticulitis with recurrent episode: No need for any antibiotics currently specially with no active or acute abdominal pain. 5 hypothyroidism: Has been on levothyroxine continue medication. 6 mild generalized anxiety disorder and panic attack: Continue patient on alprazolam. 7 GI prophylaxis: Patient will be on pantoprazole. 8 daily alcohol intake. Monitor for DTs. CODE STATUS: Full code. Discharge plan: Return home tomorrow Impression and plan of care have been directed as dictated by the signing physician. Mai Clemens nurse practitioner acting as scribe for signing ph ysician.
[2018-07-23] MEDS: APIXABAN 5 MG TAB PO SCH (20:18)
[2018-07-23] MEDS ORDERED: DILTIAZEM DRIP BOLUS FROM BAG 1 MG SOLN IV ONE (22:19)
[2018-07-23] MEDS ORDERED: DILTIAZEM 125 MG in SODIUM CHLORIDE 0.9% 100 ML IV SCH (22:30)
[2018-07-23] MEDS: ALPRAZolam 0.25 MG TAB PO PRN (23:52)
[2018-07-24] MEDS: LEVOTHYROXINE 25 MCG TAB PO SCH (06:48)
[2018-07-24] MEDS: SPIRONOLACTONE 25 MG TAB PO SCH (09:23)
[2018-07-24] MEDS: PANTOPRAZOLE 40 MG/10 ML VIAL IVP SCH (09:23)
[2018-07-24] MEDS: APIXABAN 5 MG TAB PO SCH (09:23)
[2018-07-24] MEDS: LISINOPRIL 2.5 MG TAB PO SCH (09:23)
[2018-07-24] MEDS: METOPROLOL TARTRATE 50 MG TAB PO SCH (09:23)
--- NOTE | 2018-07-24 11:59 | P.DS ---
Providers Date of admission: 07/21/18 07:22 Expected date of discharge: 07/24/18 Attending physician: Benedicto Chavarria Consults: 07/21/18 07:24 Consult Physician Urgent Consulting Provider: Raymond Verdugo Consult Reason/Comments: GIB Do you want consulting provider notified?: Yes 07/21/18 07:25 Consult Physician Urgent Consulting Provider: [facility] Consult Reason/Comments: new RVR Do you want consulting provider notified?: Yes Primary care physician: Wang May [facility] Course: 58-year-old male one of Dr. May patient with past medical his tory of hypothyroidism and history of diverticulitis with recurrent bleed had colonoscopy in 2013 and [place] [address] Verdugo patient is known to have recurrent GI bleed back and forth has been treated for it several times. Apparently patient had an acute GI bleed with bloody stool when he wiped himself a significant amount of blood ended up coming to the emergency department at [facility] early this morning at the time was exam found to have very rapid pulse with heart rate running 170 beats per minutes found to be in A. fib with RVR his blood count was not low patient was not in any active bleed he was started on Cardizem drip consult cardiology and admit patient to the hospital. Also consult Dr. boss for possible colonoscopy and prepare for anticoagulation if needed. Echocardiogram at the time was seen was pending came back positive for severe cardiopathy with ejection fraction less than 20% tile would not be clear evidence why 07/22: Patient is currently on Cardizem drip and heart rate remains slightly elevated. Echocardiogram reveals EF of less than 20% and cardiology has added Aldactone and lisinopril to beta chauncey. Plan for further evaluation to determine etiology of cardiomyopathy once GI bleeding is controlled. Dr. Verdugo is planning for colonoscopy tomorrow. Patient states that he did have a bowel movement this morning and there was a little bit of blood that appeared to be from hemorrhoids. Hemoglobin is stable at 14.8. He has been afebrile, heart rate 110, blood pressure 114/69, pulse ox 96% on room air. 07/23: Patient is scheduled for colonoscopy today. His heart rate remains around 100 and he is on Cardizem drip. Cardiology to address the transition to oral medications and plan to start eliquis after colonoscopy if cleared by Dr. Verdugo. Anticipate he will be ready for discharge tomorrow. 07/24: Patient underwent colonoscopy yesterday that showed mild right-sided colitis, internal hemorrhoids and biopsy was obtained. Pathology report is pending. During the night, patient's heart rate jumped up to 130-150 and cardiology resumed patient on Cardizem drip. He has been started on eliquis. Lopressor is currently at 50 mg 3 times daily. He is also on Aldactone and lisinopril which are new. Cardiology has discontinued Cardizem drip and recommend continuing same medications. Patient will be discharged home today in stable condition. Discharge diagnoses: 1 A. fib with RVR, new onset, chronic atrial fibrillation. 2 acute GI bleed secondary to internal hemorrhoids 3 cardiomyopathy of unclear etiology. Workup is planned as an outpatient. 4 history of diverticulitis 5 hypothyroidism 6 mild generalized anxiety disorder and panic attack Discharge plan: Return home Impression and plan of care have been directed as dictated by the signing physician. Mai Clemens nurse practitioner acting as scribe for signing physician. Patient Condition at Discharge: Good Plan - Discharge Summary Discharge Rx Participant: Yes New Discharge Prescriptions: New Spironolactone [Aldactone] 25 mg PO DAILY #30 tab Apixaban [Eliquis] 5 mg PO BID #60 tab Metoprolol Tartrate [Lopressor] 50 mg PO TID #90 tab Lisinopril [Zestril] 2.5 mg PO BID #60 tab Continue Levothyroxine Sodium [Synthroid] 25 mcg PO DAILY ALPRAZolam [Xanax] 0.25 mg PO HS PRN PRN Reason: Insomnia Discharge Medication List ALPRAZolam [Xanax] 0.25 mg PO HS PRN 07/21/18 [History] Levothyroxine Sodium [Synthroid] 25 mcg PO DAILY 07/21/18 [History] Apixaban [Eliquis] 5 mg PO BID #60 tab 07/24/18 [Rx] Lisinopril [Zestril] 2.5 mg PO BID #60 tab 07/24/18 [Rx] Metoprolol Tartrate [Lopressor] 50 mg PO TID #90 tab 07/24/18 [Rx] Spironolactone [Aldactone] 25 mg PO DAILY #30 tab 07/24/18 [Rx] Follow up Appointment(s)/Referral(s): Wang May DO [Primary Care Provider] - 1 Week Jocelynn Handley MD [STAFF PHYSICIAN] - 1 Week Patient Instructions/Handouts: A-fib (Atrial Fibrillation) (DC) Activity/Diet/Wound Care/Special Instructions: pt has commercial coverage and qualifies for $10/mo Eliquis-coupon provided to pt Discharge Disposition: HOME SELF-CARE
--- NOTE | 2018-07-24 14:25 | P.PN ---
Subjective Progress Note Date: 07/24/18 Is a 58-year-old gentleman with history of diverticulosis who presented to the hospital with some blood noted in his stool, and the emergency room he was found to be in atrial fibrillation and for this reason a cardiology consultation was requested. He was seen in consultation by Dr. Handley, it appears that that the patient continues to be in atrial fibrillation although his rate is under adequate control. His coronary risk factors are remarkable for nicotine dependence for which he quit smoking 5 years ago, hypertension, nondiabetic. The patient has been seen by Dr. boss and is scheduled tomorrow to undergo a colonoscopy. Echocardiogram with Doppler study was performed which revealed an ejection fraction of less than 20% with mild to moderate tricuspid regurgitation. Blood pressure 114/70 with a heart rate of 90, 93% on room air. Globin today is 14.8, sodium 141, potassium 4.1, BUN 8 and creatinine 0.7. 07/23/2018 Patient was seen and examined today, underwent a colonoscopy. Continues to be in atrial fibrillation, rate under adequate control. We will recommend the patient not be on Cardizem because of his cardiomyopathy. We will continue with beta chauncey and start the patient on Eliquis today. 07/24/2018 Patient was seen and examined today, hemoglobin 14.2. Hemodynamically stable. Objective - Vital Signs Vital signs: Vital Signs Temp 97.6 F 07/24/18 12:17 Pulse 89 07/24/18 12:17 Resp 18 07/24/18 12:17 BP 99/76 07/24/18 12:17 Pulse Ox 94 L 07/24/18 12:17 Intake & Output 07/23/18 07/24/18 07/24/18 18:59 06:59 18:59 Intake Total 520 630 Balance 520 630 Weight 100.3 kg Intake: IV 400 Oral 120 630 Other: Voiding Method Urinal # Voids 2 1 # Bowel Movements 1 - Exam Neck HEENT: Supple, no lymphadenopathy, no thyroid enlargement, no carotid bruits. Lungs: Clear to auscultation without crackles or wheezes no rhonchi, no deformity. Chest Wall: Chest wall normal expansion with deep inspiration no tenderness and no deformity was found on exam, no costochondral pain or discomfort. Heart: Irregular rate and rhythm, S1, S2 positive S3 , no murmur, rub or gallop. Back: Symmetric, no curvature, ROM normal, no CVA tenderness. Abdomen: Soft, non-tender, bowel sounds active all four quadrants, no masses, no organomegaly. Extremities: Extremities normal, atraumatic, no cyanosis or edema. Pulses: 2+ and symmetric. Skin: Skin color, texture, tugor normal, no rashes or lesions. Neurologic: Alert oriented x3 cranial nerves II through XII intact, no motor deficit, no abnormal balance or gait. - Labs CBC & Chem 7: 07/23/18 06:32 07/22/18 05:24 Assessment and Plan Plan: Assessment and plan #1 chronic persistent atrial fibrillation, likely of recent duration #2 cardiac myopathy of unclear etiology, it could be tachycardia induced cardiomyopathy, however it could be a primary cardiac myopathy or alcoholic artery myopathy causing the A. fib as well as. #3 episode of gastrointestinal bleeding scheduled for colonoscopy tomorrow #4 daily EtOH use Plan From cardiology's perspective, we'll recommend to continue the patient on his current medications. We will follow him along with you now on an as-needed basis only, please of hesitate to call with any questions. Follow-up appointment in the office post discharge. DNP note has been reviewed, I agree with a documented findings and plan of care. Patient was seen and examined.
--- NOTE | 2018-07-24 14:51 | P.PN ---
Subjective Progress Note Date: 07/24/18 Principal diagnosis: Rectal bleeding Patient doing well today. No bleeding since colonoscopy yesterday. Heart rate better controlled currently off Cardizem drip. Objective - Vital Signs Vital signs: Vital Signs Temp 97.6 F 07/24/18 12:17 Pulse 89 07/24/18 12:17 Resp 18 07/24/18 12:17 BP 99/76 07/24/18 12:17 Pulse Ox 94 L 07/24/18 12:17 Intake & Output 07/23/18 07/24/18 07/24/18 18:59 06:59 18:59 Intake Total 520 630 Balance 520 630 Weight 100.3 kg Intake: IV 400 Oral 120 630 Other: Voiding Method Urinal # Voids 2 1 # Bowel Movements 1 - Exam Abdomen: Soft, nontender, nondistended - Labs CBC & Chem 7: 07/23/18 06:32 07/22/18 05:24 Assessment and Plan (1) BRBPR (bright red blood per rectum) Narrative/Plan: Continue diet as tolerated. Monitor for bleeding. We'll sign off. Please call if needed. Current Visit: Yes Status: Acute Code(s): K62.5 - HEMORRHAGE OF ANUS AND RECTUM SNOMED Code(s): 23127142
[2018-07-24] MEDS ORDERED: METOPROLOL TARTRATE 50 MG TAB PO SCH (16:00)
[2018-07-24 16:43] VITALS: BP 105/61; PULSE 64; TEMP 97.8
== END 2018-07-24 18:33 | disposition home or self-care (01) | DRG 310 ==
LOC: EC 05:33 → 2SICU 07:22 → 3SCARD 17:47
PROVIDERS: ADMIT Internal Medicine Geriatric Medicine; ATTEND Internal Medicine Geriatric Medicine
PROC: 0DBH8ZX Excision of Cecum, Via Natural or Artificial Opening Endoscopic, Diagnostic (ICD-10-PCS; principal; 2018-07-23 13:00)
DX: I48.1 Persistent atrial fibrillation (principal); K64.8 Other hemorrhoids; I42.9 Cardiomyopathy, unspecified; I07.1 Rheumatic tricuspid insufficiency; E03.9 Hypothyroidism, unspecified; F41.0 Panic disorder [episodic paroxysmal anxiety]; I10 Essential (primary) hypertension; K52.9 Noninfective gastroenteritis and colitis, unspecified; K57.30 Diverticulosis of large intestine without perforation or abscess without bleeding; Z79.890 Hormone replacement therapy; Z79.899 Other long term (current) drug therapy; Z87.891 Personal history of nicotine dependence; Z80.8 Family history of malignant neoplasm of other organs or systems
CPT/HCPCS: 36415; 45380; 71046; 80053; 82272; 83735; 83880; 84439; 84443; 84484; 85025; 85027; 85610; 85730; 88305; 93005; 93306; 96365; 96366; 96376; 99285